=== PATIENT | female | born 1975 | race Caucasian/White ===

== ENCOUNTER → 2018-05-26 11:50 | Outpatient (CLI) | payer OTHER, SELFPAY ==
[2018-05-26 15:58] LABS: Hematocrit 43.5 % (37-47); Hemoglobin 14.7 g/dl (12.0-15.0); Mean Corp Hgb Conc 33.8 g/gl (32-36); Mean Corpuscular Hgb 31.1 pg (27.0-32.0); Mean Corpuscular Volume 92.2 fL (81-99); Mean Platelet Vol. 11.8 fl (6.2-12.0); Platelet Count 251 K/mm3 (150-450); RBC Distribution Width SD 43.4 fl (35.1-43.9); Red Blood Count 4.72 M/mm3 (4.2-5.4); White Blood Count 8.2 K/mm3 (4.4-11.0)
[2018-05-26 16:00] LABS: Scan Indicated on CBC? Y/N NO
[2018-05-26 16:12] LABS: Progesterone Level 0.15 ng/mL (See Comment)
[2018-05-26 16:13] LABS: Estradiol 93.2 pg/mL; Free T3 2.4 pg/mL (2.18-3.98); T4 Free Direct 1.11 ng/dL (0.76-1.46); Thyroid Stim Hormone (TSH) 1.84 uIU/mL (0.358-3.74)
[2018-05-26 16:32] LABS: Hemoglobin A1c 4.8 % (4.2-6.3)
[2018-05-29 14:03] LABS: HPV Reflexed? NOT INDICATED
== END ==
PROVIDERS: Visit Provider Obstetrics & Gynecology
DX: Z12.4 Encounter for screening for malignant neoplasm of cervix (principal); N94.3 Premenstrual tension syndrome; N92.0 Excessive and frequent menstruation with regular cycle
CPT/HCPCS: 36415; 82670; 83036; 84144; 84403; 84439; 84443; 84481; 85027; 88175; G0145

== ENCOUNTER → 2018-06-18 15:40 | Outpatient (CLI) | payer OTHER, SELFPAY ==
--- NOTE | 2018-06-18 15:46 | US_ITS ---
STUDY: ULTRASOUND OF THE FEMALE PELVIS - COMPLETE REASON FOR EXAM: Female, 42 years old. Abnormal hormones, abnormal bleeding LMP: June 14, 2018 TECHNIQUE: Transabdominal and endovaginal TECHNICAL QUALITY: Adequate. COMPARISON: None. FINDINGS: The uterus is anteverted and is in a midline position. The uterus measures 11.1 x 6.8 x 3.2 cm. Nabothian cyst at the uterine cervix. The endometrium measures 5 mm in thickness, and is hyperechoic. There is no demonstrated endometrial mass. Posterior fibroid measures 2.5 x 3.1 x 1.9 cm. Left fundal fibroid measures 2.4 x 2.3 x 2.4 cm. The patient does not have an I.U.D. The right ovary is visualized. The right ovary measures 3.2 x 2.3 x 1.5 cm. There is stable 1.1 cm right ovarian cyst. There is normal arterial and normal venous vascularity. The left ovary is visualized. The left ovary measures 2.8 x 2.3 x 1.8 cm. There is no left ovarian cyst or ovarian mass. There is no visualized left adnexal mass or complex lesion. There is normal arterial and normal venous vascularity. There is no fluid in the cul-de-sac. The pre void volume of the bladder was 472 ml. Polycystic ovary disease: No. US/Pelvic (Non ) IMPRESSION: Uterine fibroids. Nabothian cyst. Unremarkable endometrium. Right ovarian cyst. Electronically Signed: Buddy Ding DO at 23:42 EST Tel [phone], Service support ,
--- NOTE | 2018-06-18 16:04 | US_ITS ---
STUDY: ULTRASOUND OF THE FEMALE PELVIS - COMPLETE REASON FOR EXAM: Female, 42 years old. Abnormal hormones, abnormal bleeding LMP: June 14, 2018 TECHNIQUE: Transabdominal and endovaginal TECHNICAL QUALITY: Adequate. COMPARISON: None. FINDINGS: The uterus is anteverted and is in a midline position. The uterus measures 11.1 x 6.8 x 3.2 cm. Nabothian cyst at the uterine cervix. The endometrium measures 5 mm in thickness, and is hyperechoic. There is no demonstrated endometrial mass. Posterior fibroid measures 2.5 x 3.1 x 1.9 cm. Left fundal fibroid measures 2.4 x 2.3 x 2.4 cm. The patient does not have an I.U.D. The right ovary is visualized. The right ovary measures 3.2 x 2.3 x 1.5 cm. There is stable 1.1 cm right ovarian cyst. There is normal arterial and normal venous vascularity. The left ovary is visualized. The left ovary measures 2.8 x 2.3 x 1.8 cm. There is no left ovarian cyst or ovarian mass. There is no visualized left adnexal mass or complex lesion. There is normal arterial and normal venous vascularity. There is no fluid in the cul-de-sac. The pre void volume of the bladder was 472 ml. Polycystic ovary disease: No. US/Transvaginal Non- IMPRESSION: Uterine fibroids. Nabothian cyst. Unremarkable endometrium. Right ovarian cyst. Electronically Signed: Buddy Ding DO at 23:42 EST Tel [phone], Service support ,
== END ==
PROVIDERS: Referring Provider Obstetrics & Gynecology; Visit Provider Obstetrics & Gynecology
DX: N94.3 Premenstrual tension syndrome (principal); N93.8 Other specified abnormal uterine and vaginal bleeding
CPT/HCPCS: 76830; 76856; 93976

== ENCOUNTER → 2018-08-27 10:52 | Outpatient (CLI) | payer MEDICAID, SELFPAY ==
[2018-08-27 12:37] LABS: Progesterone Level 0.86 ng/mL (See Comment)
== END ==
PROVIDERS: Visit Provider Obstetrics & Gynecology
DX: N94.3 Premenstrual tension syndrome (principal); N93.8 Other specified abnormal uterine and vaginal bleeding
CPT/HCPCS: 36415; 84144

== ENCOUNTER → 2018-11-11 11:31 | Outpatient (CLI) | payer MEDICAID, SELFPAY ==
[2018-11-11 14:13] LABS: Estradiol 238.8 pg/mL
[2018-11-11 14:21] LABS: Progesterone Level 13.42 ng/mL (See Comment)
== END ==
PROVIDERS: Visit Provider Obstetrics & Gynecology
DX: N92.0 Excessive and frequent menstruation with regular cycle (principal)
CPT/HCPCS: 36415; 82670; 84144

== ENCOUNTER → 2021-07-12 11:38 | Outpatient (CLI) | payer OTHER, SELFPAY ==
[2021-07-12 14:06] LABS: Hematocrit 36.2 % (37-47); Hemoglobin 12.3 g/dL (12.0-15.0); Mean Corpuscular Hgb 30.5 pg (27.0-32.0); Mean Corpuscular Volume 89.8 fL (81-99); Mean Platelet Vol. 11.8 fl (6.2-12.0); Platelet Count 248 K/mm3 (150-450); RBC Distribution Width CV 13.9 % (11.6-14.6); RBC Distribution Width SD 45.2 fl (35.1-43.9); Red Blood Count 4.03 M/mm3 (4.2-5.4); White Blood Count 6.6 K/mm3 (4.4-11.0)
[2021-07-12 14:15] LABS: Estradiol 137.5 pg/mL; Follicle Stimulating Hormone 7.7 mIU/mL; Luteinizing Hormone 2.4 mIU/mL; T4 Free Direct 1.09 ng/dL (0.76-1.46); Thyroid Stim Hormone (TSH) 2.33 uIU/mL (0.358-3.74)
== END ==
PROVIDERS: Visit Provider Obstetrics & Gynecology
DX: R10.2 Pelvic and perineal pain (principal)
CPT/HCPCS: 36415; 82670; 83001; 83002; 84146; 84439; 84443; 85027